=== PATIENT | female | born 1945 | race African-American/Black ===

== ENCOUNTER 2016-11-07 00:47 | Inpatient (IN) | payer OTHER ==
[~2016-11-07] VITALS: Ht 152.4 cm; Wt 44.0 kg
[2016-11-07 02:00] VITALS: BP 99/55
[2016-11-07] MEDS ORDERED: MAG HYDROX/AL HYDROX/SIMETH 30 ML UDC PO PRN (02:30)
[2016-11-07] MEDS ORDERED: ACETAMINOPHEN 325 MG TABLET PO PRN (02:30)
[2016-11-07] MEDS ORDERED: TEMAZEPAM 7.5 MG CAPSULE PO PRN (02:30)
[2016-11-07] MEDS ORDERED: LORAZEPAM 0.5 MG TABLET PO PRN (02:30)
[2016-11-07] MEDS ORDERED: MAGNESIUM HYDROXIDE 30 ML UDC PO PRN (02:30)
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
[2016-11-07] MEDS ORDERED: LEVO50TA8 PO (07:03)
[2016-11-07 08:24] VITALS: BP 107/62
[2016-11-07] MEDS: LEVOTHYROXINE SODIUM 50 MCG TABLET PO SCH (10:34)
--- NOTE | 2016-11-07 11:12 | NUR ---
DR. LANDEROS GAVE AN ORDER FOR THE DENIAL RIGHTS FOR ROOM SEARCH TO LOOK FOR THE MISSING CORDLESS PHONES.
[2016-11-07 16:19] VITALS: BP 107/71
[2016-11-07 20:22] VITALS: BP 111/73
[2016-11-07] MEDS: MIRTAZAPINE 15 MG TABLET PO SCH (22:31)
[2016-11-08 07:02] LABS: BASOPHILS % (AUTO) 0.6 % (0.0-2.0); EOSINOPHILS % (AUTO) 0.8 % (0.0-6.0); HEMATOCRIT 41 % (33-45); HEMOGLOBIN 13.1 g/dL (11.5-14.8); MEAN CORPUSCULAR HEMOGLOBIN 33 PG (26.0-33.0); MEAN CORPUSCULAR HGB CONC 32 g/dl (31.0-36.0); MEAN CORPUSCULAR VOLUME 101 fL (82-100); MONOCYTES # (AUTO) 0.8 /CMM (0.1-1.30); MONOCYTES % (AUTO) 17.7 % (2.0-12.0); NEUTROPHILS # (AUTO) 1.5 /CMM (1.8-8.9); NEUTROPHILS % (AUTO) 34.9 % (43.0-81.0); PLATELET COUNT (AUTO) 248 /CMM (150-450); RDW COEFFICIENT OF VARIATION 11.8 (11.5-15.0); RED BLOOD CELL COUNT(AUTO) 4.02 MIL/uL (4.0-5.2); WHITE BLOOD COUNT (AUTO) 4.4 K/uL (4.3-11.0)
[2016-11-08 07:33] LABS: ALBUMIN 3.6 g/dL (3.4-5.0); BILIRUBIN,TOTAL 0.7 mg/dL (0.2-1.0); CREATININE 0.7 mg/dL (0.6-1.3); POTASSIUM 4.4 mmol/L (3.5-5.1); TOTAL PROTEIN, SERUM 7.4 g/dL (6.4-8.2)
[2016-11-08 08:00] VITALS: BP 127/75
[2016-11-08] MEDS: LEVOTHYROXINE SODIUM 50 MCG TABLET PO SCH (08:42)
[2016-11-08 09:09] LABS: EOSINOPHILS % (MANUAL) 2 % (0-4); LYMPHOCYTES % (MANUAL) 37 % (16-48); MONOCYTES % (MANUAL) 12 % (0-11.0); NEUTROPHILS % (MANUAL) 49 (42-76); PLATELET ESTIMATE ADEQUATE
[2016-11-08 16:00] VITALS: BP 106/68
[2016-11-08 20:12] VITALS: BP 144/68
[2016-11-08] MEDS: MIRTAZAPINE 15 MG TABLET PO SCH (21:51)
--- NOTE | 2016-11-09 00:54 | NUR ---
Pt has been quite passive, selectively mute, evasive, & guarded but mostly pleasant on approach. She was med compliant last night.
[2016-11-09 08:00] VITALS: BP 119/80
[2016-11-09] MEDS: LEVOTHYROXINE SODIUM 50 MCG TABLET PO SCH (09:09)
[2016-11-09 16:00] VITALS: BP 114/62
--- NOTE | 2016-11-09 19:15 | NUR ---
GPS/RN NOTE: PATIENT HAD NO BOWEL MOVEMENT X 4 DAYS, REQUESTING FOR HER LAXATIVE, MILK OF MAGNESIA 30 ML PO GIVEN.
--- NOTE | 2016-11-09 20:07 | NUR ---
GPS/RN NOTE: PATIENT AWAKE, ALERT, ORIENTED X3, NO ACUTE DISTRESS NOTED. BREATHING NON-LABORED. SHOWS NO S/S OF ANY PAIN AT THIS TIME.
[2016-11-09] MEDS: MIRTAZAPINE 15 MG TABLET PO SCH (20:53)
[2016-11-09 21:29] VITALS: BP 125/69
[2016-11-09 21:30] VITALS: BP 125/69
[2016-11-10 08:26] VITALS: BP 94/57
[2016-11-10] MEDS: LEVOTHYROXINE SODIUM 50 MCG TABLET PO SCH (09:00)
--- NOTE | 2016-11-10 09:00 | NUR ---
GPS/RN SCANNED AND ADMINISTERED SYNTHROID 50 MCG BUT DID NOT SAVE IN SYSTEM.
--- NOTE | 2016-11-10 09:09 | NUR ---
UR Update: RHEA faxed clinicals (Psych H&P, Med H&P, Med list, face sheet, 5150 hold, and psych progress note) to TRINY ([phone]) telehealth case manager for [facility]. link trainer maintenance worker will follow-up.
--- NOTE | 2016-11-10 11:37 | NUR ---
Initial Discharge Plan: Patient live at home with her [place] [address] . personal care worker spoke to patient's ex- who stated that he wanted patient to return home. personal care worker will follow-up with MD, family, and patient and will help form a safe and proper discharge. Upon discharge personal care worker will provide patient with referrals to substance abuse treatment centers for alcohol abuse and will provide patient referrals for her tobacco use.
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
[2016-11-10 16:00] VITALS: BP 104/62
--- NOTE | 2016-11-10 17:17 | NUR ---
UR Update: RHEA faxed clinicals (Med list and psych progress note) to TRINY ([phone]) binder caser for [facility]. rollway worker will follow-up.
--- NOTE | 2016-11-10 19:40 | NUR ---
GPS RN NOTE: PATIENT RESTING IN BED, NO ACUTE DISTRESS NOTED. BREATHING EVEN AND UNLABORED. PATIENT CALM AND COOPERATIVE, DENIES SUICIDAL IDEATIONS AT THIS TIME. BED LOCKED AND IN LOWEST POSITION. WILL CONTINUE TO [id number].
[2016-11-10 20:08] VITALS: BP 114/57
[2016-11-10] MEDS: MIRTAZAPINE 15 MG TABLET PO SCH (21:04)
--- NOTE | 2016-11-11 03:10 | NUR ---
GPS RN NOTE: PATIENT SLEEPING IN BED. BREATHING EVEN AND UNLABORED, NO SOB NOTED. BED LOCKED AND IN LOWEST POSITION. WILL CONTINUE TO MONITOR.
--- NOTE | 2016-11-11 06:15 | NUR ---
GPS RN NOTE: PATIENT RESTING IN BED, NO ACUTE DISTRESS NOTED. BREATHING EVEN AND UNLABORED, NO SOB NOTED. NO PSYCH OR BEHAVIORAL ISSUES NOTED. NO ACUTE CHANGES DURING THE NIGHT. COMPLIANT W/ MEDS. BED LOCKED AND IN LOWEST POSITION. WILL ENDORSE TO DAY NURSE TO CONTINUE WITH PLAN OF CARE.
[2016-11-11 08:00] VITALS: BP 102/67
--- NOTE | 2016-11-11 08:30 | NUR ---
bridge ironworker faxed state mandated reporting form to APS ritesh Carey (fax:[phone]/ phone: [phone]). bridge ironworker will follow-up.
[2016-11-11] MEDS: LEVOTHYROXINE SODIUM 50 MCG TABLET PO SCH (09:23)
--- NOTE | 2016-11-11 10:32 | NUR ---
beet worker attempted to contact AJ supportive employment case manager for [employer] ([phone]) to schedule patient's follow-up appointment. However, he was unavailable. Senior Engineering Manager left a detailed message with her contact information. SW will follow-up.
--- NOTE | 2016-11-11 13:33 | NUR ---
I have reviewed the psychosocial assessment and concur with the information provided. No changes are necessary. Parrish Morales, [facility] [id number] Addendum: 11/11/16 at 1333 by PARRISH MORALES SW Amended: Links added.
--- NOTE | 2016-11-11 15:37 | NUR ---
PATIENT DENIED ANY S/S OF S.I MOOD APPROPRIATE AND PLEASNAT ON UNIT PT PLANNING FOR D/C HOME TODAY PATIENT D/C HOE AT 12 30 PM WITH ALL BELONGINGS IN NO ACUTE DISTRESS
--- NOTE | 2016-11-11 15:38 | NUR ---
Discharge Note: Patient was discharged home with her [place] [address] . Ex- Wai Alberts ([phone]) picked up the patient via private vehicle. Patient and patient's ex- were both agreeable with the discharge plan. Patient left with no distress. Patient's mood and affect were appropriate upon discharge. Patient denied suicidal/ homicidal ideations upon discharge. RHEA provided patient with referrals to [facility] ([phone]). Patient agreed to follow-up with a psychiatrist within 30 days. RHEA provided patient with referrals to Alcoholics Anonymous [address] [place] [address] [address] [place] [address] ([phone]) meeting are second Wednesday of the month at 7:00pm. RHEA also provided patient with a referral for smoking cessation at the [facility] ([phone]) from 5:30-7pm [address] [place] [address]. Facilitated info to IDT team who are in agreement with discharge arrangement. The multidisciplinary exitcare form was done, printed, signed, and given to the patient.
--- NOTE | 2016-11-11 16:47 | NUR ---
UR Update: Tug Boat Engineer faxed discharge summary to Antwan and Jaspal Pruitt from [facility] [facility] (fax: [phone]/ )
== END 2016-11-11 13:00 | disposition home or self-care (01) | DRG 885 ==
LOC: ER 00:52 → GPS 01:37
PROVIDERS: ADMIT Psychiatry & Neurology Psychiatry; ATTEND Nurse Practitioner Acute Care
DX: F39 Unspecified mood [affective] disorder (principal); R45.851 Suicidal ideations; F31.81 Bipolar II disorder; F29 Unspecified psychosis not due to a substance or known physiological condition; F10.10 Alcohol abuse, uncomplicated; E03.9 Hypothyroidism, unspecified
CPT/HCPCS: 36415; 80053-TC; 84443-TC; 85025-TC; 87081-TC

== ENCOUNTER 2016-11-30 12:33 | Inpatient (IN) | payer OTHER ==
[~2016-11-30] VITALS: Ht 152.4 cm; Wt 43.5 kg
[~2016-11-30 12:33] MED LIST: LEVO50TA8 PO
[2016-11-30 18:05] VITALS: BP 151/78
--- NOTE | 2016-11-30 18:05 | NUR ---
[id number]: PT IS 71 YEARS OLD FEMALE ADMITTED ON VOLUNTARY STATUS. DUE TO RESPONDED TO A CALL OF A DOMESTIC DISTURBANCE. PT APPEARED INTOXICATED, WAS SLURRING SPEECH AND WAS SWAYING BACK AND FORTH WHILE STANDING. PT WAS MAKING STATEMENTS ABOUT KILLING HERSELF. PT HAS A HX OF SUICIDAL STATEMENTS AND IDEATIONS. PT HAS DEPRESSION, SI. UPON [id number] ASSESSMENT PT IS ANXIOUS, RESTLESS. PT DENIES SI/HI. ESCORTED PT AROUND THE UNIT. EXPLAINED ABOUT MEAL TIME, FRESH AIR BREAKS SCHEDULED. GAVE PT'S RIGHT BOOKLET. NOTIFIED DR. NUGENT AND MAINFRAME CONSULTANT VICKY CARRERA. BELONGINGS STORED AND DOCUMENTED. ALL PAPERWORK AND COMPUTER DOCUMENTATION COMPLETE. WILL ENDORSE TO INCOMING NURSE TO DOUBLE CHECK ALL PAPERWORK AND COMPUTER DOCUMENTATION.
[2016-11-30] MEDS ORDERED: LORAZEPAM 0.5 MG TABLET PO PRN (19:00)
[2016-11-30] MEDS ORDERED: ACETAMINOPHEN 325 MG TABLET PO PRN (19:00)
[2016-11-30] MEDS ORDERED: MAG HYDROX/AL HYDROX/SIMETH 30 ML UDC PO PRN (19:00)
[2016-11-30] MEDS ORDERED: MAGNESIUM HYDROXIDE 30 ML UDC PO PRN (19:00)
[2016-11-30] MEDS ORDERED: TEMAZEPAM 7.5 MG CAPSULE PO PRN (19:00)
--- NOTE | 2016-11-30 19:30 | NUR ---
GPS RN NOTE, RECEIVED PATIENT AWAKE AND IN BED, NO S/S OR COMPLAINTS OF PAIN AT THIS TIME. PATIENT IS DISPLAYING NO S/S OF APPARENT DISTRESS AT THIS TIME. PATIENT BREATHING IS UNLABORED WITH EQUAL RISE AND FALL OF THE CHEST. PATIENT IS ALERT AND ORIENTED X 3 ON ROOM AIR WITH A SPO2 96%. PATIENT COMPLIANT WITH MEDICATIONS, DEPRESSED, COOPERATIVE, CALM, AND NEEDS REORIENTATION. PATIENT DENIES SUICIDE AND HOMICIDAL IDEATIONS AT THIS TIME. PATIENT ASSISTED WITH TURNING AND REPOSITIONING Q2HR AND PRN FOR COMFORT AND CIRCULATION. PATIENT HAS NO NEEDS AT THIS TIME. PATIENT EDUCATED ON THE USE OF THE CALL CONTRERAS. PATIENT BED SIDE RAILS UP X2 FOR SAFETY, BED IS LOCKED AND LOW WILL CONTINUE TO MONITOR AND MAINTAIN SAFETY.
[2016-11-30 19:48] VITALS: BP 130/76
[2016-12-01] MEDS ORDERED: LEVOTHYROXINE SODIUM 50 MCG TABLET ONE (07:04)
--- NOTE | 2016-12-01 07:11 | NUR ---
GPS RN NOTE, PATIENT TAKES HER SYNTHROID 50MCG BEFORE BREAKFAST.
[2016-12-01 07:23] LABS: ALBUMIN 3.3 g/dL (3.4-5.0); BILIRUBIN,TOTAL 0.6 mg/dL (0.2-1.0); CALCIUM, SERUM 8.5 mg/dL (8.5-10.1); CREATININE 0.7 mg/dL (0.6-1.3); POTASSIUM 3.9 mmol/L (3.5-5.1)
[2016-12-01] MEDS ORDERED: LEVOTHYROXINE SODIUM 50 MCG TABLET PO SCH ×2 (07:30)
[2016-12-01 08:12] VITALS: BP 110/71
--- NOTE | 2016-12-01 12:07 | NUR ---
UR update: cardroom worker faxed clinicals (med H&P, med list, face sheet) to Aj (fax: [phone]/ ) from [employer] [employer].
--- NOTE | 2016-12-01 14:20 | NUR ---
I have reviewed this patients psychosocial dated 11/10/16 and I can attest to the accuracy of the information therein. There have been no changes since her last assessment. Patient was oriented x4. Patient's mood and affect are depressed and patient became tearful during the assessment. Patient kept talking about her dogs and began to cry. Pt's. insight and judgement are poor. Pt. admitted to having two glasses of wine daily and rn social work administered the brief intervention substance abuse form for alcohol dependence. Pt. denies visual/ auditory hallucinations. Pt. denies suicidal/homicidal ideations. Patient stated that she wanted to return home upon discharge Patient lives at home with her [place] [address] . Patient's Ex- Wai stated that he would pick-up the patient upon discharge. lawn service worker will help form a safe and proper discharge.
--- NOTE | 2016-12-01 14:38 | NUR ---
Initial Discharge Plan: Patient live at home with [place] [address] and stated that she wants to return home upon discharge. frog or oyster farmworker spoke to patient's ex- Wai who stated that he would cloth picker the patient when she is ready for discharge. frog or oyster farmworker will help form a safe and proper discharge. frog or oyster farmworker will provide patient with referrals to AA meetings in [facility].
[2016-12-01 16:00] VITALS: BP 115/72
[2016-12-01 20:40] VITALS: BP 91/54
[2016-12-01] MEDS: MIRTAZAPINE 15 MG TABLET PO SCH (21:12)
[2016-12-02 08:00] VITALS: BP 105/61
[2016-12-02] MEDS: LEVOTHYROXINE SODIUM 50 MCG TABLET PO SCH (08:20)
--- NOTE | 2016-12-02 09:36 | NUR ---
UR update: jackscrew worker faxed updated clinicals (Psych H&P, med list) to Aj (fax: [phone]/ ) from [employer]/ [employer].
[2016-12-02 15:50] VITALS: BP 107/65
[2016-12-02 20:00] VITALS: BP 101/47
[2016-12-02 21:00] VITALS: BP 105/63
[2016-12-02] MEDS: MIRTAZAPINE 15 MG TABLET PO SCH (21:23)
[2016-12-02 23:51] VITALS: BP 105/63
[2016-12-03] MEDS: LEVOTHYROXINE SODIUM 50 MCG TABLET PO SCH (07:53)
[2016-12-03 08:24] VITALS: BP 118/62
--- NOTE | 2016-12-03 09:32 | NUR ---
UR update: journeyman sheet metal worker faxed updated clinicals (Psych H&P, med list) to Aj (fax: [phone]/ ) from [employer]/ [employer].
[2016-12-03 15:31] VITALS: BP 129/59
--- NOTE | 2016-12-03 16:18 | NUR ---
needleworker spoke to patient's ex- Wai who stated that he would coal picker the patient tomorrow in the afternoon.
--- NOTE | 2016-12-03 16:35 | NUR ---
licensed clinical social worker spoke to APS worker Kaitlin Rubio (fax:[phone]/ phone: [phone]) regarding whether there was an open APS case she stated that there was not and created a new report. licensed clinical social worker will follow-up.
[2016-12-03 20:00] VITALS: BP 123/63
[2016-12-03] MEDS: MIRTAZAPINE 15 MG TABLET PO SCH (22:21)
[2016-12-04] MEDS: LEVOTHYROXINE SODIUM 50 MCG TABLET PO SCH (07:57)
[2016-12-04 08:27] VITALS: BP 99/68
--- NOTE | 2016-12-04 12:05 | NUR ---
GPS RN: PATIENT DISCHARGED HOME ACCORDING TO DR. NUGENT'S ORDER. PATIENT CONDITION IS STABLE FOR DISCHARGE, VS STABLE, PATIENT DENIES SI/HI/AVH AT THE TIME OF DISCHARGE. ALL BELONGINGS RETURNED TO THE PATIENT. BELONGINGS FORM SIGNED. EDUCATIONAL EXIT CARE PRINTED, SIGNED AND PROVIDED TO THE PATIENT. PRESCRIPTIONS PROVIDED TO THE PATIENT AND CALLED IN TO THE [facility] THAT PATIENT IS USING CURRENTLY [[id number], [address], , SPOKE WITH PHARMACIST MONTSERRAT]. PATIENT PICKED UP BY EX- RYAN MELO [phone] VIA PRIVATE CAR.
--- NOTE | 2016-12-04 15:43 | NUR ---
Discharge Note: Patient was discharged [place] [address] . Ex- Wai Alberts ([phone]) picked up the patient via private vehicle. Patient and patient's ex- were both agreeable with the discharge plan. Patient's mood and affect were appropriate upon discharge. Patient denied suicidal and homicidal ideations upon discharge. Patient has a scheduled appointment with her psychiatrist Dr. Kaitlin Pop January 15, 2016 at 1:00pm. [address] [facility] [address] ([phone]). provided patient with referrals to Alcoholics Anonymous [address] [facility] [address] [place] [address] ([phone]) meetings are second Wednesday of the month at 7:00pm. RHEA also provided patient with a referral for smoking cessation at the [facility] ([phone]) from 5:30-7pm [address] [place] [address]. Facilitated info to IDT team who are in agreement with discharge arrangement. The multidisciplinary exitcare form was done, printed, signed, and given to the patient.
--- NOTE | 2016-12-04 16:07 | NUR ---
match up worker will faxed the state mandated form ([phone]). SW will follow-up
== END 2016-12-04 12:05 | disposition home or self-care (01) | DRG 885 ==
LOC: GPS 17:42
PROVIDERS: ADMIT Psychiatry & Neurology Psychiatry; ATTEND Nurse Practitioner Acute Care
DX: F33.2 Major depressive disorder, recurrent severe without psychotic features (principal); R45.851 Suicidal ideations; E03.9 Hypothyroidism, unspecified; F10.10 Alcohol abuse, uncomplicated
CPT/HCPCS: 36415; 80048-TC; 80053-TC; 87081-TC